=== PATIENT | male | born 1995 | race African-American/Black ===

== ENCOUNTER 2021-08-11 03:19 | Emergency (ER) | payer MEDICAID ==
[~2021-08-11] VITALS: Ht 175.3 cm; Wt 89.5 kg
[2021-08-11] MEDS ORDERED: LIDOCAINE HCL/EPINEPHRINE 1%-EPI 1:100,000 20 ML VIAL INFIL SCH (03:40)
[2021-08-11] MEDS ORDERED: TETANUS, DIPHTHERIA, PERTUSSIS VAC/PF 0.5ML (>10YR OLD) IM ONE (03:40)
== END 2021-08-11 06:00 | disposition home or self-care (01) ==
LOC: ER 03:19
DX: S51.011A Laceration without foreign body of right elbow, initial encounter (principal); W01.110A Fall on same level from slipping, tripping and stumbling with subsequent striking against sharp glass, initial encounter; Y93.E1 Activity, personal bathing and showering; Y92.012 Bathroom of single-family (private) house as the place of occurrence of the external cause; Y99.8 Other external cause status
CPT/HCPCS: 12002; 99282; J3490; 90715; 99281